=== PATIENT | female | born 1975 | race Caucasian/White ===

== ENCOUNTER 2019-12-04 00:03 | Emergency (ER) | payer OTHER ==
--- NOTE | 2019-12-04 01:26 | ER Document Report ---
ED Medical Screen (RME) - General Chief Complaint: Chest Pain Stated Complaint: CHEST PAIN Time Seen by Provider: 12/04/19 01:19 Notes: Patient is a 44-year-old female with a history of hypothyroidism who presents the emergency department with a chief complaint of chest tightness that started around 1140 this evening. Patient states that she took Tums and 2 aspirins and stated that it feels like it helped. Patient states that the pain has gone away, but she wanted to get checked. Patient states that she did go camping last week, but denies any leg pain. She does not smoke and she does not take oral contraceptives. Exam: S1, S2. I have greeted and performed a rapid initial assessment of this patient. A comprehensive ED assessment and evaluation of the patient, analysis of test results and completion of medical decision making process will be conducted by an additional ED providers. Physical Exam - Vital signs Vitals: Temp Pulse Resp BP Pulse Ox 97.9 F 70 20 152/98 H 96 12/04/19 00:15 12/04/19 00:15 12/04/19 00:15 12/04/19 00:15 12/04/19 00:15 Course - Vital Signs Vital signs: Temp Pulse Resp BP Pulse Ox 97.9 F 70 20 152/98 H 96 12/04/19 00:15 12/04/19 00:15 12/04/19 00:15 12/04/19 00:15 12/04/19 00:15
[2019-12-04] MEDS ORDERED: ASPIRIN 81 MG TABLET, CHEWABLE PO ONE (01:27)
--- NOTE | 2019-12-04 01:45 | ER Document Report ---
ED General - General Chief Complaint: Chest Pressure Stated Complaint: CHEST PAIN Time Seen by Provider: 12/04/19 01:19 Primary Care Provider: DON PALMA MD [ACTIVE STAFF] - Follow up as needed MARK DRIVER MD [ACTIVE PROVISIONAL STAFF] - Follow up as needed - [facility] Notes: 44-year-old female history of hyperlipidemia, hypothyroidism presents with chest pain. Patient describes being woken up from sleep at approximately 11:45 PM by severe burning retrosternal chest pain radiating to esophagus without associated symptoms similar to prior GERD symptoms but more severe that lasted for about half an hour. Patient took Tums and aspirin at symptom onset. Patient now feels very minimal pain. Patient denies any exertional chest pain and is able to do many outdoor activities and hiking without any symptoms. Patient has recently been doing road trips with maximal 6 hours driving at a time. Patient previously has felt palpitations with sensation of rapid or irregular heartbeat will with no current symptoms and no symptoms during her chest pain episode. Patient denies any hypertension history, cardiac disease/CAD, early CAD in family, smoking, drug use, diabetes, pleuritic chest pain, lower extremity edema/pain, recent trauma/surgery/immobilization, cancer history, cough/hemoptysis, exogenous estrogen therapy, recent , DVT/PE/hypercoagulability history in self or family, abdominal pain, vomiting, diarrhea, melena, bright red blood per rectum, constipation - Related Data Allergies/Adverse Reactions: No Known Allergies Allergy (Verified 12/04/19 01:27) Past Medical History - General Information source: Patient - Social History Smoking Status: Never Smoker Family History: Reviewed & Not Pertinent Review of Systems - Review of Systems Notes: REVIEW OF SYSTEMS: CONSTITUTIONAL : Denies fever, chills, or sweats. EENT: Denies recent cold/sinus symptoms, denies throat pain CARDIOVASCULAR: + chest pain, -DIANE RESPIRATORY: Denies cough, denies shortness of breath. GASTROINTESTINAL: Denies abdominal pain, nausea/vomiting. GENITOURINARY: Denies difficulty urinating, painful urination. FEMALE GENITOURINARY: Denies abnormal vaginal bleeding, vaginal discharge. MUSCULOSKELETAL: Denies neck pain, back pain. SKIN: Denies rash or skin lesions. HEMATOLOGIC : Denies easy bruising or bleeding. LYMPHATIC: Denies swollen, enlarged glands. NEUROLOGICAL: Denies headache, denies change in gait. PSYCHIATRIC: Denies anxiety or stress or depression. Physical Exam - Vital signs Vitals: Temp Pulse Resp BP Pulse Ox 97.9 F 70 20 152/98 H 96 12/04/19 00:15 12/04/19 00:15 12/04/19 00:15 12/04/19 00:15 12/04/19 00:15 - Notes Notes: PHYSICAL EXAMINATION: GENERAL: Well-appearing, well-nourished, cheerful talkative smiling middle-aged woman appearing younger than stated age sitting up in stretcher with no visible signs of discomfort and in no acute distress. HEAD: Atraumatic, normocephalic. EYES: Pupils equal round and appropriate constriction, sclera anicteric, conjunctiva are normal. ENT: nares patent, moist mucous membranes. NECK: Normal range of motion, supple without lymphadenopathy LUNGS: Breath sounds clear to auscultation bilaterally and equal. No wheezes rales or rhonchi. HEART: Regular rate and rhythm without murmurs ABDOMEN: Soft, nontender, no guarding, no masses, no CVAT EXTREMITIES: Normal range of motion, no pitting or edema. No cyanosis. No calf tenderness. NEUROLOGICAL: Awake, alert, conversing appropriately, moves all extremities spontaneously. PSYCH: Normal mood, normal affect. SKIN: Warm, Dry, normal turgor, no rashes or lesions noted. Course - Re-evaluation Re-evalutation: 12/04/19 03:01 Patient low risk for ACS, will obtain second troponin in order to rule patient out with ADAPT score. No signs of ischemia on her EKG, normal chest x-ray. Patient has had recent travel, but is PERC negative and has no DVT symptoms. Patient's symptoms most likely secondary to GERD versus esophageal spasm which I discussed with patient and warned her about untreated GERD and the risk of Gutierres's esophagus/cancer and informed her that she would need to follow-up [facility] gastroenterology likely for endoscopy. Patient has had palpitations in the past but never had a cardiology evaluation. No arrhythmia now, but I informed patient that it was important that she follow-up with cardiology for monitoring to diagnose possible paroxysmal arrhythmia, but there is no sign that this has contributed to her current symptoms. We will continue to monitor pending results of second troponin. 12/04/19 04:33 2-hour troponin negative, patient continues to feel well, patient ready for discharge with cardiology, GI, and PCP follow-up. Patient given extensive return to ED precautions which he demonstrated understanding of. We will print out all copies of patient's results to facilitate outpatient follow-up. - Vital Signs Vital signs: Temp Pulse Resp BP Pulse Ox 97.9 F 70 15 123/69 98 12/04/19 01:28 12/04/19 00:15 12/04/19 04:35 12/04/19 04:35 12/04/19 04:35 - Laboratory Result Diagrams: 12/04/19 01:35 12/04/19 01:35 Laboratory results interpreted by me: 12/04/19 12/04/19 01:35 01:35 Est GFR ( Amer) 59 L Est GFR (MDRD) Non-Af 49 L Glucose 129 H TSH 5.43 H - Diagnostic Test Radiology results interpreted by me: 12/04/19 01:45 Chest x-ray with normal cardiac silhouette, no infiltrates, no sign of fluid overload, mediastinum within normal limits - EKG Interpretation by Me Additional EKG results interpreted by me: 12/04/19 01:44 Heart rate 75, sinus rhythm, no significant ST elevations or depressions, no significant T wave abnormalities, QTc 447 Discharge - Discharge Clinical Impression: Chest pain Qualifiers: Chest pain type: unspecified Qualified Code(s): R07.9 - Chest pain, unspecified Disposition: HOME, SELF-CARE Additional Instructions: Chest Pain of Unclear Cause The exact cause of your chest pain isn't clear. Fortunately, there is no evidence of a dangerous medical condition. Further testing may be required to find the source of the pain. Most often, we find that this pain is coming from the chest wall -- the muscles or rib joints in the chest. But chest pain can come from the lung and lung lining, the esophagus, the heart valves or heart lining, and even the stomach or gallbladder. Rest. Eat lightly until the pain is gone. We may prescribe medicine for pain and inflammation. You should call the physician immediately if the pain radiates to the shoulder, jaw or arms; if you start to run a fever or develop a cough; or if you develop shortness of breath, or other new or alarming symptoms. Reflux Disease (GERD) Gastro-Esophageal Reflux Disease (GERD) is caused by stomach acid refluxing back up into the esophagus. The valve at the end of the esophagus may be weak. This is common in persons with a hiatal hernia. GERD symptoms can include indigestion, chest pain, heartburn, or food "sticking." Certain foods, alcohol, and aspirin can make GERD worse. Treatment depends on the severity. Usually, antacids or acid-suppressing medicines are used. When the esophagus is acutely inflamed, the physician will often prescribe membrane-protective drugs such as Carafate. Some patients benefit from medication such as Reglan that tightens the valve at the top of the stomach. Avoid those foods that bring on your symptoms. For many people, these foods are coffee, chocolate, onions, garlic, and carbonated drinks. Don't use alcohol, aspirin, caffeine, or tobacco. Don't eat late at night -- within 4 hours of bedtime. Don't over-eat. If necessary, elevate the head of your bed about 4 inches so that stomach acid will not roll up into your esophagus. Call the doctor if you develop severe chest pain, inability to swallow fluids, fever, or worsening symptoms. Esophageal Spasm Your symptoms may have been caused by esophageal spasm. This is tightness of the muscles of the esophagus. It causes symptoms such as chest pain or food "sticking." It's more common in persons with a hiatal hernia. Esophageal spasms can occur due to nerve damage (neuropathy), acid reflux, inherited esophageal conditions, or just due to old age. Often we x-ray the esophagus to look for ulcers, inflammation, reflux, or tumors. Usually, antacids or acid-suppressing medicines are used to control possible esophagitis (inflammation of the esophagus due to acid). Nitroglycerin can relax the esophagus when spasms occur. Avoid alcohol, aspirin, caffeine, tobacco, and foods that cause heartburn (such as chocolate). Elevate the head of your bed about four inches. Call the doctor if you develop severe chest pain, inability to swallow fluids, fever, or worsening symptoms. Follow-up with linotype mechanic, primary doctor, and radial saw operator within 1 week. Return to the emergency department immediately if you have any worsening chest pain, trouble breathing, dizziness, fainting, or any other worsening or alarming symptoms. Your TSH was mildly elevated which may be a sign that you need need to change her dose of Synthroid, discussed this with your primary doctor. Your blood pressure was mildly elevated in the ED at 152/98 which was likely secondary to pain, you should have this rechecked with your primary doctor when you are feeling better. Your kidney function was also borderline in the emergency department, you should also have this rechecked. Prescriptions: Famotidine [Pepcid] 20 mg PO BIDP PRN #20 tablet PRN Reason: Forms: Return to Work Referrals: MARK DRIVER MD [ACTIVE PROVISIONAL STAFF] - Follow up as needed DON PALMA MD [ACTIVE STAFF] - Follow up as needed
[2019-12-04 01:51] LABS: ABSOLUTE EOSINOPHILS # (AUTO) 0.1 10^3/uL (0.0-0.6); ABSOLUTE LYMPHOCYTES (AUTO) 2.2 10^3/uL (0.5-4.7); ABSOLUTE MONOCYTES (AUTO) 0.4 10^3/uL (0.1-1.4); ABSOLUTE NEUT (AUTO) 3.8 10^3/uL (1.7-8.2); BASOPHILS % (AUTO) 0.6 % (0-2); EOSINOPHILS % (AUTO) 1.8 % (0-6); HEMATOCRIT 41.2 % (36.0-47.0); HEMOGLOBIN 14.1 g/dL (12.0-15.5); LYMPHOCYTES % (AUTO) 33.9 % (13-45); MEAN CORPUSCULAR HEMOGLOBIN 31.4 pg (27.0-33.4); MEAN CORPUSCULAR HGB CONC 34.3 g/dL (32.0-36.0); MEAN CORPUSCULAR VOLUME 91 fl (80-97); MONOCYTES % (AUTO) 6.1 % (3-13); PLATELET COUNT 289 10^3/uL (150-450); RED CELL DISTRIBUTION WIDTH 12.8 % (11.5-14.0); SEGMENTED NEUTROPHILS % (AUTO) 57.6 % (42-78); TOTAL CELLS COUNTED % (AUTO) 100 %; WHITE BLOOD COUNT 6.5 10^3/uL (4.0-10.5)
--- NOTE | 2019-12-04 02:02 | RADIOLOGY REPORT (SQ) ---
EXAM DESCRIPTION: XR CHEST 1 VIEW COMPLETED DATE/TME: 12/04/2019 01:18 CLINICAL HISTORY: 44 years, Female, chest pain COMPARISON: None. NUMBER OF VIEWS: 1 TECHNIQUE: Portable chest LIMITATIONS: None. FINDINGS: Heart size is normal. Lungs are clear. No pneumothorax IMPRESSION: Negative chest copyright 2011 [employer]- All Rights Reserved
[2019-12-04 02:06] LABS: ALBUMIN 4.5 g/dL (3.5-5.0); ALKALINE PHOSPHATASE 62 U/L (38-126); ANION GAP 5 (5-19); ASPARTATE AMINO TRANSFERASE 33 U/L (14-36); BILIRUBIN,TOTAL 0.3 mg/dL (0.2-1.3); BLOOD UREA NITROGEN 15 mg/dL (7-20); CALCIUM 10.1 mg/dL (8.4-10.2); CARBON DIOXIDE 28 mmol/L (22-30); CHLORIDE 107 mmol/L (98-107); CREATINE KINASE 99 U/L (30-135); GLUCOSE 129 mg/dL (75-110); POTASSIUM 3.9 mmol/L (3.6-5.0); TOTAL PROTEIN 7.4 g/dL (6.3-8.2)
[2019-12-04] MEDS ORDERED: FAMOTIDINE 20 MG TABLET PO ONE (02:26)
[2019-12-04 04:49] VITALS: BP 123/69
--- NOTE | 2019-12-04 07:36 | EKG REPORT ---
SEVERITY:- NORMAL ECG - SINUS RHYTHM : Confirmed by: Murtaza Crockett MD 04-Dec-2019 07:36:36
== END 2019-12-04 04:55 | disposition home or self-care (01) ==
LOC: ER 00:03
DX: R07.89 Other chest pain (principal); E03.9 Hypothyroidism, unspecified
CPT/HCPCS: 36415; 71045; 80053; 82550; 83735; 84443; 84484; 85025; 93005; 93010; 99285